=== PATIENT | female | born 1990 | race Caucasian/White ===

== ENCOUNTER 2017-04-10 16:11 | Emergency (ER) | payer BC ==
[~2017-04-10] VITALS: Ht 162.6 cm; Wt 84.3 kg
[~2017-04-10 16:11] MED LIST: ANAPROX DS550 M1 PO; HYDROCODON-ACE1 EAC7 PO; KEFLEX500 MG PO
[2017-04-10 16:58] LABS: HEMATOCRIT 38.1 % (36.0-46.0); HEMOGLOBIN 13.4 G/DL (11.9-15.5); MCH 29.8 PG (29.0-34.0); MCHC 35.2 G/DL (30.0-36.0); MCV 84.9 FL (83-99); PLATELET COUNT 183 K/uL (156-360); RBC DIS.WIDTH-CV 12.4 % (11.8-14.6); RBC DIS.WIDTH-SD 38.5 % (39-53); RED BLOOD COUNT 4.49 M/uL (3.80-5.20); WHITE BLOOD COUNT 11.3 K/uL (4.1-10.2)
[2017-04-10 17:06] LABS: ALBUMIN 4.2 g/dL (3.2-4.8)
[2017-04-10 17:07] LABS: CHLORIDE 101 mEq/L (99-109); POTASSIUM 3.9 mEq/L (3.7-5.4); SODIUM 131 mEq/L (136-147)
[2017-04-10 17:09] LABS: GLUCOSE 100 mg/dL (70-99); TOTAL PROTEIN 7.1 g/dL (6.4-8.3)
[2017-04-10 17:12] LABS: ALKALINE PHOSPHATASE 81 IU/L (3-129)
[2017-04-10 17:13] LABS: CREATININE 0.8 mg/dL (0.6-1.3); GFR ESTIMATE (CALCULATED) > 59 mL/min/
[2017-04-10 17:14] LABS: AST (GOT) 17 IU/L (2-34); UREA NITROGEN (BUN) 14 mg/dL (9-23)
[2017-04-10 17:16] LABS: ALT (GPT) 22 IU/L (3-49)
[2017-04-10 17:22] LABS: QUANTITATIVE HCG < 4.0 MIU/ML
[2017-04-10 18:17] LABS: APPEARANCE CLOUDY ((CLEAR)); BILIRUBIN NEGATIVE; BLOOD MODERATE; COLOR YELLOW ((YELLOW)); GLUCOSE (STRIP) NEGATIVE; KETONES 80; LEUKOCYTES LARGE; NITRITE POSITIVE; PROTEIN (STRIP) 100; SPECIFIC GRAVITY 1.015 (1.000-1.030); UROBILINOGEN 0.2 MG/DL (0.2-1.0)
[2017-04-10 18:37] LABS: BACTERIA 2+ /HPF; EPITHELIAL CELLS 1+ /HPF; MUCUS 1+ /LPF; RED BLOOD CELLS 20-30 /HPF (0-5); UCUL ADDED? YES; WHITE BLOOD CELLS TNTC /HPF (0-5)
[2017-04-10] MEDS ORDERED: KEFLEX500 MG PO (21:58)
[2017-04-10] MEDS ORDERED: NORCO 5/3251 TABLET PO (21:58)
[2017-04-10] MEDS ORDERED: MOTRIN600 MG PO (21:58)
[2017-04-10] MEDS ORDERED: ZOFRAN ODT8 MG PO (22:02)
[2017-04-10 23:54] VITALS: BP 131/72
== END 2017-04-10 23:57 | disposition home or self-care (01) ==
LOC: EME 16:11
DX: N12 Tubulo-interstitial nephritis, not specified as acute or chronic (principal); Z87.442 Personal history of urinary calculi; Z87.440 Personal history of urinary (tract) infections; Z91.040 Latex allergy status
CPT/HCPCS: 74176; 80053; 81003; 83605; 84702; 85027; 87040; 87077; 87086; 87186; 99281; 99285; J0696; J2405; J3010; J7030; S0028